=== PATIENT | male | born 2000 | race African-American/Black ===

== ENCOUNTER 2022-03-16 12:22 | Emergency (ER) | payer MEDICAID ==
[~2022-03-16] VITALS: Ht 170.2 cm; Wt 66.2 kg
[2022-03-16] MEDS ORDERED: LIDOCAINE 1%-EPI 1:100,000 20 ML VIAL ONE (12:48)
[2022-03-16] MEDS ORDERED: LIDOCAINE 1%-EPI 1:100,000 20 ML VIAL IJ ONE (13:00)
--- NOTE | 2022-03-16 13:00 | NUR ---
ERMD AT BEDSIDE FOR MSE
--- NOTE | 2022-03-16 13:03 | NUR ---
INCISION AND DRAINAGE KIT SET UP AT BEDSIDE FOR ER
[2022-03-16] MEDS ORDERED: NEOMY/BACITRA/POLYMYXIN B OINT UD PACKET TP ONE ×2 (13:13→13:15)
[2022-03-16 13:22] VITALS: BP 142/86
--- NOTE | 2022-03-16 13:24 | NUR ---
Patient discharged to home in stable condition. Written and verbal after care instructions given. Patient verbalizes understanding of instructions. Stressed follow up or return to ER for worsening s/s.
== END 2022-03-16 13:24 | disposition home or self-care (01) ==
LOC: ER 12:22
DX: S60.552A Superficial foreign body of left hand, initial encounter (principal); X58.XXXA Exposure to other specified factors, initial encounter; Y92.89 Other specified places as the place of occurrence of the external cause; Z91.010 Allergy to peanuts; Z91.013 Allergy to seafood; J45.909 Unspecified asthma, uncomplicated
CPT/HCPCS: 99284; 10120; J3490; A4663

== ENCOUNTER 2023-01-16 16:31 | Emergency (ER) | payer MEDICAID, OTHER ==
[~2023-01-16] VITALS: Ht 180.3 cm; Wt 65.8 kg
[2023-01-16 16:35] VITALS: O2SAT 99
[2023-01-16] MEDS ORDERED: PRED50TA PO (17:54)
[2023-01-16] MEDS ORDERED: ALBU8.5H8 INH (17:54)
== END 2023-01-16 18:08 | disposition home or self-care (01) ==
LOC: ER 16:40
DX: S16.1XXA Strain of muscle, fascia and tendon at neck level, initial encounter (principal); M54.50 Low back pain, unspecified; J45.909 Unspecified asthma, uncomplicated; Z91.010 Allergy to peanuts; Z91.013 Allergy to seafood; Z79.899 Other long term (current) drug therapy; V43.52XA Car driver injured in collision with other type car in traffic accident, initial encounter; Y93.89 Activity, other specified; Y92.410 Unspecified street and highway as the place of occurrence of the external cause; Y99.8 Other external cause status
CPT/HCPCS: 72125; A4663